=== PATIENT | female | born 1975 | race Caucasian/White ===

== ENCOUNTER → 2020-07-22 09:01 | Outpatient (BNVA) | payer OTHER, SELFPAY | PROVIDERS: PCP Internal Medicine; Referring Provider Internal Medicine; Visit Provider Physician Assistant | DX: Z76.89 Persons encountering health services in other specified circumstances (principal) | CPT/HCPCS: 99204 ==

== ENCOUNTER → 2020-08-16 09:38 | Outpatient (BNVA) | payer OTHER, SELFPAY | PROVIDERS: PCP Internal Medicine; Visit Provider Surgery | DX: Z01.818 Encounter for other preprocedural examination (principal); E66.01 Morbid (severe) obesity due to excess calories; Z68.41 Body mass index [BMI] 40.0-44.9, adult; R06.02 Shortness of breath | CPT/HCPCS: 99212 ==

== ENCOUNTER → 2020-09-16 07:40 | Outpatient (BNVA) | payer OTHER, SELFPAY | PROVIDERS: Visit Provider Physician Assistant | DX: Z76.89 Persons encountering health services in other specified circumstances (principal) ==

== ENCOUNTER → 2020-10-04 08:39 | Outpatient (BNVA) | payer OTHER, SELFPAY | PROVIDERS: PCP Internal Medicine; Referring Provider Internal Medicine; Visit Provider Dietitian, Registered | DX: Z76.89 Persons encountering health services in other specified circumstances (principal) ==

== ENCOUNTER → 2020-10-15 08:31 | Outpatient (BNVA) | payer OTHER, SELFPAY | PROVIDERS: PCP Internal Medicine; Visit Provider Surgery | DX: Z76.89 Persons encountering health services in other specified circumstances (principal) ==

== ENCOUNTER → 2020-10-30 08:24 | Outpatient (BNVA) | payer OTHER, SELFPAY | PROVIDERS: PCP Internal Medicine; Visit Provider Dietitian, Registered | DX: Z76.89 Persons encountering health services in other specified circumstances (principal) ==

== ENCOUNTER → 2020-11-05 08:16 | Outpatient (BNVA) | payer OTHER, SELFPAY | PROVIDERS: PCP Internal Medicine; Visit Provider Surgery ==

== ENCOUNTER → 2020-11-07 08:08 | Outpatient (BNVA) | payer OTHER, SELFPAY | PROVIDERS: PCP Internal Medicine; Visit Provider Dietitian, Registered ==

== ENCOUNTER → 2021-10-16 09:24 | Outpatient (BNVA) | payer MEDICAID, SELFPAY | PROVIDERS: PCP Internal Medicine; Visit Provider Anesthesiology ==

== ENCOUNTER 2021-11-20 09:00 | Emergency (ER) | payer OTHER, SELFPAY ==
--- NOTE | ~2021-11-20 | XR_ITS ---
EXAMINATION: XR SHOULDER, RIGHT CLINICAL INFORMATION: Right shoulder pain COMPARISON: None TECHNIQUE: AP external rotation, Grashey, scapular Y, and axillary views of the right shoulder. FINDINGS: The glenohumeral joint space is maintained normal. The AC joint space is normal except for minimal reactive spurring. There are postsurgical sutures along the anterior glenoid. No visible acute fracture or dislocation seen. The soft tissues are normal. XR/XR shoulder RT min 2V IMPRESSION: Postsurgical sutures along the right anterior glenoid. No acute fracture or dislocation. There is mild degenerative arthritic changes right AC joint.
[2021-11-20 09:02] VITALS: BP 138/56; PULSE 84; RESP 16; TEMP 36.4; O2SAT 99; BMI 37.8
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
[2021-11-20] MEDS: Ketorolac Tromethamine 60 MG/2 ML VIAL IM (09:45)
== END 2021-11-20 09:58 | disposition home or self-care (01) ==
PROVIDERS: Emergency Provider Emergency Medicine; PCP Internal Medicine
DX: S43.401A Unspecified sprain of right shoulder joint, initial encounter (principal); X50.0XXA Overexertion from strenuous movement or load, initial encounter; Y93.F9 Activity, other caregiving; Y92.810 Car as the place of occurrence of the external cause; Y99.9 Unspecified external cause status
CPT/HCPCS: 73030; 96372; 99283; 99284; J1885

== ENCOUNTER 2021-11-21 17:02 | Emergency (ER) | payer OTHER, SELFPAY ==
[2021-11-21 18:01] VITALS: BP 145/75; PULSE 91; RESP 18; TEMP 36.9; O2SAT 97; BMI 37.8
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
[2021-11-21] MEDS: Ketorolac Tromethamine 30 MG/ML VIAL IM (19:14)
== END 2021-11-21 19:22 | disposition home or self-care (01) ==
PROVIDERS: Emergency Provider Emergency Medicine Emergency Medical Services; PCP Internal Medicine
DX: S43.401A Unspecified sprain of right shoulder joint, initial encounter (principal); X50.0XXA Overexertion from strenuous movement or load, initial encounter; F17.200 Nicotine dependence, unspecified, uncomplicated; Y93.9 Activity, unspecified; Y92.9 Unspecified place or not applicable; Y99.9 Unspecified external cause status
CPT/HCPCS: 96372; 99283; 99284; J1885

== ENCOUNTER → 2021-11-28 10:16 | Outpatient (BNVA) | payer OTHER, SELFPAY | PROVIDERS: PCP Internal Medicine; Visit Provider Physician Assistant | DX: M75.21 Bicipital tendinitis, right shoulder (principal); M25.319 Other instability, unspecified shoulder | CPT/HCPCS: 99202 ==

== ENCOUNTER 2021-12-26 13:20 | Outpatient (REF) | payer OTHER, SELFPAY | END 2021-12-26 13:21 | disposition home or self-care (01) | LOC: HO.XRAY 13:20 | PROVIDERS: PCP Internal Medicine; Visit Provider Physician Assistant | DX: Z13.89 Encounter for screening for other disorder (principal) ==

== ENCOUNTER 2022-03-01 14:13 | Emergency (ER) | payer OTHER, SELFPAY ==
[2022-03-01 14:17] VITALS: BP 109/49; PULSE 84; RESP 18; TEMP 37; O2SAT 97; BMI 38.5
[2022-03-01 14:50] LABS: MANUAL DIFF FLAG NO
[2022-03-01 14:51] LABS: Basophils Percent Auto 0.3 % (0-2); Eosinophils Absolute Auto 0.2 X10*3/uL (0.0-0.4); Eosinophils Percent Auto 2.2 % (0-4); Hematocrit 38.5 % (37.0-47.0); Hemoglobin 12.5 g/dl (12.0-16.0); Imm Gran Abs Auto 0.02 X10*3/uL (0.00-0.03); Imm Gran Pct Auto 0.3 % (0.0-0.4); Lymphocytes Absolute Auto 2.8 X10*3/uL (1.2-4.9); Lymphocytes Percent Auto 36.4 % (20-40); Mean Corpuscular HGB Conc 32.5 g/dl (31.0-35.0); Mean Corpuscular Hemoglobin 29.7 pg (27.0-33.0); Mean Corpuscular Volume 91.4 fL (80.0-98.0); Monocytes Absolute Auto 0.6 X10*3/uL (0.1-1.2); Monocytes Percent Auto 7.7 % (2-11); Neutrophils Absolute Auto 4.1 x10*3/uL (2.0-8.3); Neutrophils Percent Auto 53.1 % (45-73); Platelet Count 246 X10*3/uL (160-400); Red Blood Count 4.21 X10*6/uL (4.20-5.50); White Blood Count 7.7 X10*3/uL (4.8-10.8)
[2022-03-01 14:53] LABS: Appearance Urine CLEAR; Color Urine YELLOW; Glucose Urine UA NEG (NEG); Leukocyte Esterase Urine NEG (NEG); Nitrite Urine NEG (NEG); Specific Gravity - Urine 1.015 (1.005-1.025); Urine Blood NEG (NEG); Urine Ketones NEG (NEG); Urine Protein NEG (NEG-TRACE)
[2022-03-01 15:00] LABS: UPreg QC Valid YES; Urine Pregnancy NEGATIVE (NEGATIVE)
[2022-03-01 15:04] LABS: Alanine Aminotransferase 44 U/L (0-31); Albumin Level 4.4 g/dL (3.5-5.0); Alkaline Phosphatase 86 U/L (39-117); Anion Gap 12 (12-20); Aspartate Amino Transferase 30 U/L (5-31); Bilirubin Direct 0.2 mg/dL (0.0-0.5); Bilirubin Total 0.6 mg/dL (0.0-1.0); Blood Urea Nitrogen 14 mg/dL (9-16); Calcium 10.2 mg/dL (8.4-10.2); Carbon Dioxide 30 mmol/L (22-29); Chloride 100 mmol/L (96-108); Creatinine Clr Calc Pharmacy 93.5; Estimated Glomerular Filt Rate > 60; Glucose Random 82 mg/dL (60-115); Potassium 4.2 mmol/L (3.3-5.1); Sodium 138 mmol/L (135-145); Total Protein 7.9 g/dL (6.5-8.0)
== END 2022-03-01 21:34 | disposition left against medical advice (07) ==
PROVIDERS: Emergency Provider Emergency Medicine; PCP Internal Medicine
DX: R10.9 Unspecified abdominal pain (principal); K59.00 Constipation, unspecified
CPT/HCPCS: 36415; 80053; 81003; 81025; 82248; 85025; 99283

== ENCOUNTER 2022-03-03 08:37 | Emergency (ER) | payer OTHER, SELFPAY ==
--- NOTE | ~2022-03-03 | CT_ITS ---
EXAMINATION: CT ABDOMEN AND PELVIS WITHOUT CONTRAST CLINICAL INFORMATION: Abdominal pain COMPARISON: KUB 11/15/2018 TECHNIQUE: Multidetector volumetric imaging was performed from the superior aspect of the liver through the pubic symphysis. Sagittal and coronal reformatted images were obtained on the technologist's workstation. This CT examination was performed using dose optimization techniques as appropriate, variously including the following: *Automated exposure control *Adjustment of mA and/or kV according to patient size (this includes techniques or standardized protocols for targeted exams where dose is matched to indication/reason for exam; i.e. extremities or head) *Use of iterative reconstruction technique DLP: 742 mGy-cm FINDINGS: LUNG BASES: The visualized lung bases are unremarkable. LIVER, GALLBLADDER, AND BILIARY TREE: The liver is again noted to be enlarged measuring 22 cm in greatest length with significantly decreased attenuation consistent with hepatic steatosis. No focal hepatic lesion or biliary ductal dilatation is present. The gallbladder is unremarkable with no evidence of radiopaque gallstones, gallbladder wall thickening, or obvious pericholecystic inflammatory changes. PANCREAS: Unremarkable. SPLEEN: Spleen is enlarged at 13.7 cm in length. ADRENAL GLANDS: Unremarkable. KIDNEYS AND URETERS: The kidneys are normal in size, shape, and attenuation. There is a 3 mm nonobstructing left lower pole renal calculus present. This measures a mean of 283 Hounsfield units with a maximum of 847 Hounsfield units. The stone is 10 cm from the posterior axillary line. No hydronephrosis, hydroureter, or right-sided calculi seen. No renal masses are seen. No perinephric stranding. BLADDER: Unremarkable. GASTROINTESTINAL TRACT: The small and large bowel are unremarkable. The appendix is unremarkable. ABDOMINAL WALL: A periumbilical hernia is seen containing only fat. Some streaky changes are present in this fat indicating possible inflammation. LYMPH NODES: No retroperitoneal lymphadenopathy. Some small inguinal lymph nodes are present, some calcified on the right. VASCULAR: Small amount of calcific plaque present in the infrarenal aorta. No aneurysm. PELVIC VISCERA: Unremarkable. OSSEOUS STRUCTURES: Unremarkable. CT/CT abdomen pelvis wo con IMPRESSION: 1. Enlarged fatty liver with mild splenomegaly. 2. 3 mm nonobstructing left lower pole renal calculus. 3. Small periumbilical hernia containing only fat. Fleischner guidelines were followed.
[2022-03-03 08:51] VITALS: BP 133/60; PULSE 83; RESP 18; TEMP 36.7; O2SAT 99; BMI 36.8
[2022-03-03 09:45] LABS: MANUAL DIFF FLAG NO
[2022-03-03 09:49] LABS: Basophils Percent Auto 0.5 % (0-2); Eosinophils Absolute Auto 0.2 X10*3/uL (0.0-0.4); Eosinophils Percent Auto 2.8 % (0-4); Hematocrit 36.8 % (37.0-47.0); Hemoglobin 12.1 g/dl (12.0-16.0); Imm Gran Abs Auto 0.02 X10*3/uL (0.00-0.03); Imm Gran Pct Auto 0.3 % (0.0-0.4); Lymphocytes Absolute Auto 2.1 X10*3/uL (1.2-4.9); Lymphocytes Percent Auto 32.5 % (20-40); Mean Corpuscular HGB Conc 32.9 g/dl (31.0-35.0); Mean Corpuscular Volume 91.1 fL (80.0-98.0); Monocytes Absolute Auto 0.6 X10*3/uL (0.1-1.2); Monocytes Percent Auto 9.2 % (2-11); Neutrophils Absolute Auto 3.5 x10*3/uL (2.0-8.3); Neutrophils Percent Auto 54.7 % (45-73); Platelet Count 198 X10*3/uL (160-400); Red Blood Count 4.04 X10*6/uL (4.20-5.50); Red Cell Distribution Width 12.8 % (11.0-16.0); White Blood Count 6.4 X10*3/uL (4.8-10.8)
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
[2022-03-03 10:05] LABS: Alanine Aminotransferase 38 U/L (0-31); Albumin Level 4.1 g/dL (3.5-5.0); Alkaline Phosphatase 77 U/L (39-117); Anion Gap 8 (12-20); Aspartate Amino Transferase 26 U/L (5-31); Bilirubin Total 0.7 mg/dL (0.0-1.0); Blood Urea Nitrogen 18 mg/dL (9-16); Calcium 9.6 mg/dL (8.4-10.2); Carbon Dioxide 29 mmol/L (22-29); Chloride 105 mmol/L (96-108); Estimated Glomerular Filt Rate > 60; Glucose Random 84 mg/dL (60-115); Potassium 3.9 mmol/L (3.3-5.1); Sodium 138 mmol/L (135-145); Total Protein 6.8 g/dL (6.5-8.0)
[2022-03-03 10:11] LABS: HCG Quantitative < 2 mIU/mL
[2022-03-03 10:23] VITALS: BP 132/45; PULSE 78; RESP 14; O2SAT 98
[2022-03-03 10:32] LABS: Appearance Urine CLEAR; Color Urine YELLOW; Glucose Urine UA NEG (NEG); Leukocyte Esterase Urine NEG (NEG); Nitrite Urine NEG (NEG); Specific Gravity - Urine 1.015 (1.005-1.025); UACC Culture Trigger NO; Urine Blood 3+ (NEG); Urine Ketones NEG (NEG); Urine Protein NEG (NEG-TRACE)
[2022-03-03 10:47] LABS: Mucus Urine 1+ /LPF; Renal Epithelial Cells Urine TRACE /LPF; Squamous Epithelial Cell Urine 2+ /LPF
[2022-03-03 10:48] LABS: Urine Talc Crystals 1+ /LPF
[2022-03-03] MEDS: Barium Sulfate Oral (Mocha) 450 ML ORAL.SUSP PO (11:43)
[2022-03-03 13:09] VITALS: BP 120/57; PULSE 83; RESP 14; O2SAT 99
== END 2022-03-03 13:20 | disposition home or self-care (01) ==
PROVIDERS: Emergency Provider Emergency Medicine; PCP Internal Medicine
DX: K42.9 Umbilical hernia without obstruction or gangrene (principal); R10.30 Lower abdominal pain, unspecified; F17.210 Nicotine dependence, cigarettes, uncomplicated; Z71.6 Tobacco abuse counseling; Z79.899 Other long term (current) drug therapy
CPT/HCPCS: 36415; 74176; 80053; 81001; 84702; 85025; 99283; 99284

== ENCOUNTER 2022-10-06 08:46 | Emergency (ER) | payer OTHER, SELFPAY ==
[2022-10-06 09:01] VITALS: BP 152/45; PULSE 95; RESP 16; TEMP 36.7; O2SAT 98; BMI 37.8
[2022-10-06 09:13] LABS: MANUAL DIFF FLAG NO
[2022-10-06 09:14] LABS: Basophils Percent Auto 0.4 % (0-2); Eosinophils Absolute Auto 0.1 X10*3/uL (0.0-0.4); Eosinophils Percent Auto 2.5 % (0-4); Hematocrit 36.7 % (37.0-47.0); Hemoglobin 12.3 g/dl (12.0-16.0); Imm Gran Abs Auto 0.02 X10*3/uL (0.00-0.03); Imm Gran Pct Auto 0.4 % (0.0-0.4); Lymphocytes Absolute Auto 2.1 X10*3/uL (1.2-4.9); Lymphocytes Percent Auto 41.5 % (20-40); Mean Corpuscular HGB Conc 33.5 g/dl (31.0-35.0); Mean Corpuscular Hemoglobin 30.2 pg (27.0-33.0); Mean Corpuscular Volume 90.2 fL (80.0-98.0); Mean Platelet Volume 9.7 fL (9.4-12.3); Monocytes Absolute Auto 0.5 X10*3/uL (0.1-1.2); Monocytes Percent Auto 9.7 % (2-11); Neutrophils Absolute Auto 2.4 x10*3/uL (2.0-8.3); Neutrophils Percent Auto 45.5 % (45-73); Platelet Count 216 X10*3/uL (160-400); Red Blood Count 4.07 X10*6/uL (4.20-5.50); Red Cell Distribution Width 12.1 % (11.0-16.0); White Blood Count 5.2 X10*3/uL (4.8-10.8)
[2022-10-06 09:27] LABS: Appearance Urine Clear; Color Urine Yellow; Glucose Urine UA Negative (Negative); Leukocyte Esterase Urine Negative (Negative); Nitrite Urine Negative (Negative); PH 6.5 (5.0-9.0); Urine Blood Negative (Negative); Urine Ketones Negative (Negative); Urine Protein Negative (Neg-Trace)
[2022-10-06 09:34] LABS: Alanine Aminotransferase 44 U/L (0-31); Albumin Level 4.1 g/dL (3.5-5.0); Alkaline Phosphatase 76 U/L (39-117); Anion Gap 8 (12-20); Aspartate Amino Transferase 34 U/L (5-31); Blood Urea Nitrogen 13 mg/dL (9-16); Calcium 9.2 mg/dL (8.4-10.2); Carbon Dioxide 31 mmol/L (22-29); Chloride 103 mmol/L (96-108); Creatinine Clr Calc Pharmacy 99.4; Estimated Glomerular Filt Rate > 60; Glucose Random 82 mg/dL (60-115); Sodium 138 mmol/L (135-145); Total Protein 6.8 g/dL (6.5-8.0)
[2022-10-06 11:32] LABS: Bilirubin Total 0.6 mg/dL (0.0-1.0)
--- OUTSIDE RECORDS SUMMARY | 2022-10-06 12:43 | XMS_ITS | Continuity of Care Document ---
:1975 Author Organization [facility] Address [address] [place] [id number]- Care Team Providers Name Role Phone Polo Sawyer MD Primary Care Physician Encounter [facility] Date(s): 08/14/20 - 08/14/[address] [address]- [facility] Discharge Disposition: A-D/C Walkout Attending Physician: Isaac Harris MD Admitting Physician: Isaac Harris MD Referring Physician: Not on Staff, Referring MD Allergies, Adverse Reactions, Alerts Substance Reaction Severity Status Latex Rash Active Pollen Itching Active Watery eyes Immunizations Given and Recorded Vaccine Date Status Refusal Reason influenza virus vaccine, inactivated 12/24/11 Given Medications Gabapentin By Mouth, 0 Refills, Maintenance Start Date: 09/21/12 Status: OrderedMorphine = 30 mg, 2 times a day, 0 Refills, Maintenance, 08/14/20 11:15:00 EDT, Partial fill upon patient request Start Date: 08/14/20 Status: OrderedoxyCODONE 20 mg oral tablet 1 tablet = 20 mg, By Mouth, 3 times a day, 0 Refills, Maintenance, 09/20/19 18:36:31 EST, Partial fill upon patient request Start Date: 09/20/19 Status: OrderedTrazodone By Mouth, 0 Refills, Maintenance Start Date: 09/21/12 Status: OrderedTrileptal 300 mg oral tablet 300 mg, 1, tablet, By Mouth, Daily, Refills 0, Maintenance, 09/20/19 18:36:08 EST Start Date: 09/20/19 Status: Ordered Problem List Condition Effective Dates Status Health Status Informant Anxiety depression(Confirmed) Active Drug abuse(Confirmed) Active PTSD - Post-traumatic stress Active disorder(Confirmed) Vital Signs Most recent to oldest [Reference Range]: 1 Height 155 cm (08/14/20 11:09 AM) Weight 97 kg (08/14/20 11:09 AM) Oxygen Saturation [94-100 %] 99 % (08/14/20 11:09 AM) Pulse Rate [55-90 bpm] 80 bpm (08/14/20 11:09 AM) Blood Pressure [90-138/55-84 mm Hg] 125/67 mm Hg (08/14/20 11:09 AM) Respiratory Rate [16-30 br/min] 18 br/min (08/14/20 11:09 AM) Temperature [96.8-100.4 DegF] 98.1 DegF (08/14/20 11:09 AM) Mode of Delivery (Oxygen) Room air (08/14/20 11:09 AM) Blood pressure sites Arm, left (08/14/20 11:09 AM) Temperature Route Oral (08/14/20 11:09 AM) Dry Weight 97 kg (08/14/20 11:09 AM) Social History Social History Type Response Smoking Status Never (less than 100 in life time) entered on: 06/19/19 Sex
--- OUTSIDE RECORDS SUMMARY | 2022-10-06 12:43 | XMS_ITS | Continuity of Care Document ---
:1975 Author Organization [address], [address] [place] [address]- Care Team Providers Name Role Phone Jefry SWARTZ, Larry Primary Care Physician Encounter [facility] [place] Date(s): 01/22/21 - 02/21/[address], [address] [place], [place] [address] Allergies, Adverse Reactions, Alerts Substance Reaction Severity [...] Active PTSD - Post-traumatic stress Active disorder(Confirmed) Social History Social History Type Response Smoking Status Never (less than 100 in life time) entered on: 06/19/19 Sex
--- OUTSIDE RECORDS SUMMARY | 2022-10-06 12:43 | XMS_ITS | Continuity of Care Document ---
:1975 Author Organization [facility] Address [address] [place] [address]- Care Team Providers Name Role Phone Larry Capps MD Primary Care Physician Encounter [facility] Date(s): 03/02/22 - 03/02/[address] [address]- Discharge Disposition: A-D/C Walkout Attending Physician: Jl Bryant MD Admitting Physician: Jl Bryant MD Referring Physician: Not on Staff, Referring [...] recent to oldest [Reference Range]: 1 Height 50 cm (03/02/22 4:34 PM) Weight 89.5 kg (03/02/22 4:34 PM) Oxygen Saturation [94-100 %] 99 % (03/02/22 4:34 PM) Pulse Rate [55-90 bpm] 96 bpm *H* (03/02/22 4:34 PM) Blood Pressure [90-138/55-84 mm Hg] 105/62 mm Hg (03/02/22 4:34 PM) Respiratory Rate [16-30 br/min] 18 br/min (03/02/22 4:34 PM) Temperature [96.8-100.4 DegF] 98.3 DegF (03/02/22 4:34 PM) Mode of Delivery (Oxygen) Room air (03/02/22 4:34 PM) Blood pressure sites Arm, right (03/02/22 4:34 PM) Temperature Route Oral (03/02/22 4:34 PM) Dry Weight 59.5 kg (03/02/22 4:34 PM) Social History Social History Type Response Smoking Status Never (less than 100 in life time) entered on: 06/19/19 Sex
--- OUTSIDE RECORDS SUMMARY | 2022-10-06 12:43 | XMS_ITS | Continuity of Care Document ---
:1975 Author Organization [address] [place] [address]- Care Team Providers Name Role Phone Larry Capps MD Primary Care Physician [place] [facility] [place]/[address], [address] [place], [place] [address] Attending Physician: Guanako Ratliff Admitting Physician: AdmGuanako yi Referring Physician: AdmtrGuanako Allergies, Adverse Reactions, Alerts Substance Reaction Severity [...]
== END 2022-10-06 12:59 | disposition left against medical advice (07) ==
PROVIDERS: Emergency Provider Emergency Medicine; PCP Internal Medicine
DX: R10.9 Unspecified abdominal pain (principal); K59.00 Constipation, unspecified; K42.9 Umbilical hernia without obstruction or gangrene
CPT/HCPCS: 36415; 80053; 81003; 85025; 99282; 99283

== ENCOUNTER 2022-10-07 08:38 | Emergency (ER) | payer OTHER, SELFPAY ==
--- NOTE | ~2022-10-07 | CT_ITS ---
EXAMINATION: CT ABDOMEN AND PELVIS WITHOUT CONTRAST CLINICAL INFORMATION: Umbilical pain. COMPARISON: None TECHNIQUE: Multidetector volumetric imaging was performed from the superior aspect of the liver through the pubic symphysis. Sagittal and coronal reformatted images were obtained on the technologist's workstation. No oral or intravenous contrast. This CT examination was performed using dose optimization techniques as appropriate, variously including the following: *Automated exposure control *Adjustment of mA and/or kV according to patient size (this includes techniques or standardized protocols for targeted exams where dose is matched to indication/reason for exam; i.e. extremities or head) *Use of iterative reconstruction technique DLP: 774 mGy-cm FINDINGS: LUNG BASES: The visualized lung bases are unremarkable. LIVER, GALLBLADDER, AND BILIARY TREE: Mild hepatomegaly secondary to diffuse hepatic steatosis similar to prior study. Liver surface is smooth. No intraparenchymal lesion or intrahepatic ductal dilatation. The gallbladder is unremarkable with no evidence of radiopaque gallstones, gallbladder wall thickening, or obvious pericholecystic inflammatory changes. PANCREAS: Unremarkable. SPLEEN: Borderline enlarged, stable ADRENAL GLANDS: Unremarkable. KIDNEYS AND URETERS: The kidneys are normal in size and smooth in contour. No hydronephrosis, hydroureter, or perinephric stranding. There is a small nonobstructing calculus again seen lower pole left kidney similar to prior exam. BLADDER: Unremarkable. GASTROINTESTINAL TRACT: No bowel obstruction or focal inflammatory changes in bowel or mesentery. Normal appendix. No ascites or fluid collection. ABDOMINAL WALL: Stable fat-containing umbilical hernia. Some minor induration of the herniated fat is stable from prior CT 03/03/2022. No acute inflammatory changes. LYMPH NODES: No lymphadenopathy. VASCULAR: Unremarkable. PELVIC VISCERA: No adnexal mass or pelvic ascites. OSSEOUS STRUCTURES: No acute bony abnormality. CT/CT abdomen pelvis wo IV con IMPRESSION: 1. Stable fat-containing umbilical hernia. No acute inflammatory changes. 2. No bowel obstruction or focal inflammatory changes in bowel or mesentery. Normal appendix. 3. No hydronephrosis or perinephric stranding. Small nonobstructing calculus lower pole left kidney.
[2022-10-07 08:40] VITALS: BP 117/57; PULSE 92; RESP 18; TEMP 36.4; O2SAT 97; BMI 39.3
[2022-10-07 08:59] LABS: MANUAL DIFF FLAG NO
[2022-10-07 09:01] LABS: Basophils Percent Auto 0.5 % (0-2); Eosinophils Absolute Auto 0.2 X10*3/uL (0.0-0.4); Eosinophils Percent Auto 2.6 % (0-4); Hematocrit 39.2 % (37.0-47.0); Imm Gran Abs Auto 0.02 X10*3/uL (0.00-0.03); Imm Gran Pct Auto 0.3 % (0.0-0.4); Lymphocytes Absolute Auto 2.5 X10*3/uL (1.2-4.9); Lymphocytes Percent Auto 40.8 % (20-40); Mean Corpuscular HGB Conc 33.2 g/dl (31.0-35.0); Mean Corpuscular Hemoglobin 30.2 pg (27.0-33.0); Mean Platelet Volume 9.9 fL (9.4-12.3); Monocytes Absolute Auto 0.5 X10*3/uL (0.1-1.2); Monocytes Percent Auto 8.1 % (2-11); Neutrophils Percent Auto 47.7 % (45-73); Platelet Count 250 X10*3/uL (160-400); Red Blood Count 4.31 X10*6/uL (4.20-5.50); Red Cell Distribution Width 11.9 % (11.0-16.0); White Blood Count 6.2 X10*3/uL (4.8-10.8)
[2022-10-07 09:02] LABS: Appearance Urine Clear; Color Urine Yellow; Glucose Urine UA Negative (Negative); Leukocyte Esterase Urine Negative (Negative); Nitrite Urine Negative (Negative); Specific Gravity - Urine 1.015 (1.005-1.025); UPreg QC Valid YES; Urine Blood Negative (Negative); Urine Ketones Negative (Negative); Urine Protein Negative (Neg-Trace)
[2022-10-07 09:03] LABS: Urine Pregnancy NEGATIVE (NEGATIVE)
[2022-10-07 09:26] LABS: Alanine Aminotransferase 46 U/L (0-31); Albumin Level 4.2 g/dL (3.5-5.0); Alkaline Phosphatase 89 U/L (39-117); Anion Gap 13 (12-20); Aspartate Amino Transferase 37 U/L (5-31); Bilirubin Direct 0.2 mg/dL (0.0-0.5); Bilirubin Total 0.7 mg/dL (0.0-1.0); Blood Urea Nitrogen 14 mg/dL (9-16); Calcium 9.6 mg/dL (8.4-10.2); Carbon Dioxide 29 mmol/L (22-29); Chloride 101 mmol/L (96-108); Creatinine Clr Calc Pharmacy 96.1; Estimated Glomerular Filt Rate > 60; Glucose Random 89 mg/dL (60-115); Lipase 13 U/L (8-78); Potassium 3.9 mmol/L (3.3-5.1); Sodium 139 mmol/L (135-145); Total Protein 7.2 g/dL (6.5-8.0)
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
[2022-10-07 14:25] VITALS: BP 129/58; PULSE 74; RESP 18; O2SAT 97
== END 2022-10-07 15:50 | disposition home or self-care (01) ==
PROVIDERS: Emergency Provider Student in an Organized Health Care Education/Training Program; PCP Internal Medicine
DX: K42.9 Umbilical hernia without obstruction or gangrene (principal); R10.33 Periumbilical pain; F17.210 Nicotine dependence, cigarettes, uncomplicated; E66.9 Obesity, unspecified; Z68.39 Body mass index [BMI] 39.0-39.9, adult
CPT/HCPCS: 36415; 74176; 80053; 81003; 81025; 82248; 83690; 85025; 99283; 99284

== ENCOUNTER → 2022-10-21 14:01 | Outpatient (BNVA) | payer OTHER, SELFPAY | PROVIDERS: PCP Internal Medicine; Visit Provider Surgery | DX: K42.9 Umbilical hernia without obstruction or gangrene (principal) | CPT/HCPCS: 99202 ==

== ENCOUNTER 2022-11-24 07:04 | Day surgery (SDC) | payer OTHER, SELFPAY ==
[2022-11-17 15:23] VITALS: BMI 38.9
[2022-11-24] VITALS (9 sets, daily range): BP systolic 109–128; BP diastolic 42–82; PULSE 80–103; RESP 13–16; TEMP 36.2–36.5; O2SAT 98–99
[2022-11-24] MEDS: Lactated Ringers 1,000 ML 80 ML IVCONT (07:49)
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
--- NOTE | 2022-11-24 08:06 | P.HPSUR_ITS ---
Pre-Procedural Eval Section A Date of Service: 11/24/22 Section B Chief Complaint: Umbilical hernia without obstruction or gangrene Details of Present Illness: Has had umbilical hernia, reducible with discomfort Relevant Family History (Specify if Yes): No Relevant Social History: None Present Medications: see Short Stay Collaborative assessment (Obesity) Medical History: Significant History History of Previous Operations: Relevant previous surgery/procedure and date(s) Allergies: Allergies Allergy/AdvReac Type Severity Reaction Status Date / Time aloe vera Allergy Severe Anaphylaxis Verified 10/21/22 14:24 corn Allergy Severe Anaphylaxis Verified 10/21/22 14:24 latex [LATEX] Allergy Severe Anaphylaxis Verified 11/17/22 15:22 peanut [PEANUT] Allergy Severe Anaphylaxis Verified 11/17/22 15:22 Review of Systems Sugical H&P ROS: Negative: Constitution, Cardiovascular, Respiratory, Neurological, Psychiatric, Hem-Onc, Allergic/Immunologic, Gastrointestinal, Genitourinary, Musculoskeletal, Integumentary, Endocrine and Eye s/Ears/Nose/Throat Exam Surgical H&P Exam: Normal: HEENT, Normal: Heart, Normal: Lungs, Normal: Extremities, Normal: Abdomen, Normal: Skin and Normal: Neurological Exam Comment: Umbilical hernia about 2 cm, reducible Plan Diagnosis/Plan: Unchanged I have reviewed the history and physical and performed a pertinent physical examination on my patient. No changes have occurred unless specified. Time Spent With Patient Time: Total time managing care of this patient today ____ minutes.
[2022-11-24 08:49] LABS: HCG Quantitative < 2 mIU/mL
--- NOTE | 2022-11-24 10:05 | P.OP_ITS ---
Operative Note Operative Note Date of Service: 11/24/22 Narrative: Preop diagnosis: Umbilical hernia Postop diagnosis: Umbilical hernia, defect about 2 cm in diameter Procedure: Repair of umbilical hernia with Ventralex mesh Surgeon: Viraj Landers MD care management assistant: SONDRA Rollins The patient is a 47-year-old female with an umbilical hernia, partially reducible. In view of symptoms she wanted proceed with repair. She understood the technique of repair with mesh. She was aware of the risks, benefits, and alternatives. Brought to the operating room placed supine under general anesthesia via endotracheal tube. The abdomen was prepped and draped in the usual sterile fashion. A surgical time-out was done. The patient received cefazolin 2 g IV preoperatively. I infiltrated the planned line of incision with lidocaine 1%. I made a transverse curvilinear infraumbilical incision using blade 15 and this was carried down with electrocautery through the full-thickness of the skin subcutaneous fat. I lifted the umbilicus is a flap with careful dissection us ing Metzenbaum scissors. This allowed me to visualize the hernia. The hernia was fat containing. I proceeded to gently dissect the hernia off of the rest of subcutaneous layer using Metzenbaum scissors and electrocautery down to the fascia. I the hernia contents from the fascial edges using the same method of sharp dissection with electrocautery as well as meds some of scissors. I was eventually able to reduce the entire hernia. The fascial defect was clearly defined. This was about 2 cm in diameter. I used a small-sized Ventralex mesh and this was positioned flat under the fascia to cover the entire hernia defect. I secured the Prolene straps of the mesh to the fascia Prolene 2 sutures. I trimmed the Prolene straps flush. I closed the fascial defect with a [id number] Maxon 1 stitch. I irrigated and and tacked the umbilicus to the fascia with a Dexon 3-0 stitch to re-create the dimple. The subcutaneous layer was reapposed with Dexon 3-0 interrupted sutures. Skin closure was achieved with Dexon 4-0 subcuticular running stitch. Steri-Strips and dressings were applied. The area was infiltrated with Marcaine 0.5% for postop analgesia the procedure was completed. The patient tolerated the procedure well. There were no immediate complications. Initial and final counts of sponges and instruments were correct. Estimated blood loss was about 10 cc The patient was extubated without difficulty and transferred to the recovery room with stable vital signs.
[2022-11-24] MEDS: oxyCODONE HCl Immed Release 5 MG TABLET PO (10:33)
[2022-11-24] MEDS: fentaNYL citrate/PF 100 MCG/2 ML VIAL 25 MCG IVPUSH ×4 (10:33→11:00)
[2022-11-24] MEDS: oxyCODONE HCl Immed Release 5 MG TABLET 10 MG PO (10:59)
[2022-11-24] MEDS: Acetaminophen 1,000 MG/100 ML PIGGYBACK 400 MG IV (11:01)
== END 2022-11-24 12:12 | disposition home or self-care (01) ==
PROVIDERS: Anesthesiology; PCP Internal Medicine; Visit Provider Surgery
PROC: (CPT 49591; principal; 2022-11-24 08:30)
DX: K42.9 Umbilical hernia without obstruction or gangrene (principal); M79.7 Fibromyalgia; K21.9 Gastro-esophageal reflux disease without esophagitis; F43.10 Post-traumatic stress disorder, unspecified; F31.9 Bipolar disorder, unspecified; F41.1 Generalized anxiety disorder; E66.01 Morbid (severe) obesity due to excess calories; Z68.38 Body mass index [BMI] 38.0-38.9, adult; Z79.899 Other long term (current) drug therapy; Z91.040 Latex allergy status; Z91.010 Allergy to peanuts; Z87.891 Personal history of nicotine dependence
CPT/HCPCS: 49591; 36415; 84702; C1781; J0131; J0690; J1885; J2250; J2405; J2795; J3010

== ENCOUNTER → 2022-12-09 09:40 | Outpatient (BNVA) | payer OTHER, SELFPAY | PROVIDERS: PCP Internal Medicine; Visit Provider Surgery | DX: Z13.89 Encounter for screening for other disorder (principal) ==